=== PATIENT | male | born 1970 | race Caucasian/White ===

== ENCOUNTER 2020-07-22 15:51 | Emergency (ER) | payer OTHER, SELFPAY ==
[~2020-07-22] VITALS: Ht 188 cm; Wt 127.0 kg
[2020-07-22 15:53] VITALS: Ht 188 cm; Wt 127.0 kg
[2020-07-22 17:00] VITALS: BP 146/99
== END 2020-07-22 17:00 | disposition home or self-care (01) ==
LOC: ED 15:51
DX: U07.1 COVID-19 (principal); K52.9 Noninfective gastroenteritis and colitis, unspecified
CPT/HCPCS: Q0162